=== PATIENT | female | born 1950 | race Caucasian/White ===

== ENCOUNTER 2022-09-18 14:42 | Outpatient (CLI) | payer OTHER, SELFPAY ==
[2022-09-18 19:21] LABS: Alanine Aminotransferase 30 U/L (6-35); Albumin Level 4.8 g/dL (3.5-5.1); Alkaline Phosphatase 95 U/L (38-126); Anion Gap 16 mmol/L (8-16); Aspartate Amino Transferase 46 U/L (14-36); Bilirubin,Total 0.8 mg/dL (0.2-1.3); Blood Urea Nitrogen 17 mg/dL (7-17); Carbon Dioxide 23 mmol/L (22-30); Chloride 99 mmol/L (98-107); Estimated Glomerular Filt Rate 40; Glucose 133 mg/dL (65-110); Potassium 4.5 mmol/L (3.4-5.0); Sodium 138 mmol/L (137-145)
[2022-09-18 19:23] LABS: Hemoglobin A1C 6.2 % (<5.7)
== END 2022-09-18 14:43 | disposition home or self-care (01) ==
LOC: ANHGOSHLAB 14:45
PROVIDERS: PCP Nurse Practitioner Family; Visit Provider Nurse Practitioner Family
DX: I12.9 Hypertensive chronic kidney disease with stage 1 through stage 4 chronic kidney disease, or unspecified chronic kidney disease (principal); N18.30 Chronic kidney disease, stage 3 unspecified; E11.9 Type 2 diabetes mellitus without complications
CPT/HCPCS: 36415; 80053; 83036

== ENCOUNTER 2023-05-05 15:04 | Outpatient (CLI) | payer OTHER, SELFPAY ==
[2023-05-05 16:11] LABS: Kit Draw Collected
== END 2023-05-05 15:05 | disposition home or self-care (01) ==
LOC: ANHGOSHLAB 15:06
PROVIDERS: PCP Nurse Practitioner Family; Visit Provider Nurse Practitioner Family
DX: R73.03 Prediabetes (principal); E78.5 Hyperlipidemia, unspecified; I10 Essential (primary) hypertension
CPT/HCPCS: 36415

== ENCOUNTER 2024-02-08 14:57 | Outpatient (CLI) | payer OTHER, SELFPAY ==
[2024-02-08 18:49] LABS: Basophils Absolute Auto 0.1 K/mm3 (0.0-0.1); Basophils Percent Auto 0.8 % (0.2-1.2); Eosinophils Absolute Auto 0.1 K/mm3 (0-0.3); Eosinophils Percent Auto 1.6 % (0-4.4); Hematocrit 46.3 % (37.0-47.0); Hemoglobin 14.9 g/dL (12.0-15.0); Immature Granulocyte Absolute 0.02 K/mm3 (0.00-0.031); Immature Granulocyte Percent A 0.2 % (0-0.5); Lymphocytes Absolute Auto 3.42 K/mm3 (0.9-3.2); Mean Corpuscular HGB Conc 32.2 g/dl (32-36); Mean Corpuscular Hemoglobin 31.4 pg (26-34); Mean Corpuscular Volume 97.5 fl (80-100); Mean Platelet Volume 9.6 fl (7.4-10.4); Monocytes Absolute Auto 0.6 K/mm3 (0.1-0.6); Monocytes Percent Auto 6.6 % (2.6-8.5); Neutrophils Absolute Auto 4.3 K/mm3 (1.3-6.7); Neutrophils Percent Auto 50.8 % (45.5-73.1); Platelet Count Result 396 k/mm3 (150-375); Red Blood Count 4.75 M/mm3 (4.2-5.4); Red Cell Distribution Width 13.7 % (11.5-14.5); White Blood Count 8.5 K/mm3 (4.5-10.0)
[2024-02-08 19:16] LABS: Alanine Aminotransferase 25 U/L (6-35); Albumin Level 4.6 g/dL (3.5-5.1); Alkaline Phosphatase 98 U/L (38-126); Anion Gap 9 mmol/L (4-12); Aspartate Amino Transferase 48 U/L (14-36); Bilirubin,Total 0.8 mg/dL (0.2-1.3); Blood Urea Nitrogen 27 mg/dL (7-17); Calcium 10.6 mg/dL (8.4-10.2); Carbon Dioxide 28 mmol/L (22-30); Chloride 101 mmol/L (98-107); Cholesterol 163 mg/dL (0-200); Estimated Glomerular Filt Rate 49; Glucose 126 mg/dL (65-110); HDL Direct 60 mg/dL; Potassium 3.5 mmol/L (3.4-5.0); Sodium 138 mmol/L (137-145); Triglycerides 255 mg/dL (<150)
[2024-02-08 19:29] LABS: LDL Cholesterol Direct 62 mg/dL
[2024-02-08 19:35] LABS: Creatinine Urine 177.8 mg/dL
[2024-02-08 19:39] LABS: MALB Creatinine Ratio 5.2 mg/g (0-30); Microalbumin Urine Random 9.2 mg/L (0-16.7)
[2024-02-13 13:33] LABS: Vitamin D 1,25 (OH)2 Total 13 pg/mL (18-72); Vitamin D2 1,25 (OH)2 <8 pg/mL; Vitamin D3 1,25 (OH)2 13 pg/mL
== END 2024-02-08 14:58 | disposition home or self-care (01) ==
LOC: ANHGOSHLAB 14:58
PROVIDERS: PCP Nurse Practitioner Family; Visit Provider Nurse Practitioner Family
DX: E55.9 Vitamin D deficiency, unspecified (principal); I10 Essential (primary) hypertension; E11.9 Type 2 diabetes mellitus without complications
CPT/HCPCS: 36415; 80053; 80061; 82043; 82652; 83036; 85025

== ENCOUNTER 2024-08-09 15:10 | Outpatient (CLI) | payer OTHER, SELFPAY ==
[2024-08-09 16:39] LABS: Basophils Absolute Auto 0.1 K/mm3 (0.0-0.1); Basophils Percent Auto 0.7 % (0.2-1.2); Eosinophils Absolute Auto 0.2 K/mm3 (0-0.3); Eosinophils Percent Auto 1.8 % (0-4.4); Hemoglobin 15.5 g/dL (12.0-15.0); Immature Granulocyte Absolute 0.03 K/mm3 (0.00-0.031); Immature Granulocyte Percent A 0.3 % (0-0.5); Lymphocytes Absolute Auto 3.09 K/mm3 (0.9-3.2); Lymphocytes Percent Auto 33.5 % (18.3-44.2); Mean Corpuscular Hemoglobin 31.9 pg (26-34); Mean Corpuscular Volume 96.7 fl (80-100); Monocytes Absolute Auto 0.8 K/mm3 (0.1-0.6); Monocytes Percent Auto 8.2 % (2.6-8.5); Neutrophils Absolute Auto 5.1 K/mm3 (1.3-6.7); Neutrophils Percent Auto 55.5 % (45.5-73.1); Platelet Count Result 401 k/mm3 (150-375); Red Blood Count 4.86 M/mm3 (4.2-5.4); Red Cell Distribution Width 13.8 % (11.5-14.5); White Blood Count 9.2 K/mm3 (4.5-10.0)
[2024-08-09 17:09] LABS: Free T4 Free Thyroxine 1.35 ng/mL (0.78-2.19); Vitamin D 25 Hydroxy 55.4 ng/mL
[2024-08-09 17:11] LABS: Alanine Aminotransferase 26 U/L (6-35); Albumin Level 4.5 g/dL (3.5-5.1); Alkaline Phosphatase 110 U/L (38-126); Anion Gap 11 mmol/L (4-12); Aspartate Amino Transferase 48 U/L (14-36); Bilirubin,Total 0.8 mg/dL (0.2-1.3); Blood Urea Nitrogen 17 mg/dL (7-17); Calcium 10.3 mg/dL (8.4-10.2); Carbon Dioxide 30 mmol/L (22-30); Chloride 98 mmol/L (98-107); Cholesterol 162 mg/dL (0-200); Estimated Glomerular Filt Rate 49; Glucose 116 mg/dL (65-110); HDL Direct 65 mg/dL; Potassium 3.4 mmol/L (3.4-5.0); Sodium 139 mmol/L (137-145); Triglycerides 232 mg/dL (<150)
[2024-08-09 17:21] LABS: LDL Cholesterol Direct 50 mg/dL
[2024-08-09 20:01] LABS: Hemoglobin A1C 6.5 % (<5.7)
== END 2024-08-09 15:11 | disposition home or self-care (01) ==
LOC: ANHGOSHLAB 15:12
PROVIDERS: PCP Nurse Practitioner Family; Visit Provider Nurse Practitioner Family
DX: Z00.00 Encounter for general adult medical examination without abnormal findings (principal); E55.9 Vitamin D deficiency, unspecified; I10 Essential (primary) hypertension; E11.9 Type 2 diabetes mellitus without complications; E78.5 Hyperlipidemia, unspecified
CPT/HCPCS: 36415; 80053; 80061; 82306; 83036; 84439; 84443; 85025

== ENCOUNTER 2025-02-07 14:16 | Outpatient (CLI) | payer OTHER, SELFPAY ==
--- OUTSIDE RECORDS SUMMARY | 2025-02-07 16:18 | XMS_ITS | Continuity of Care Document ---
Author Organization [facility] [place] Address [address] [place] [address] Phone Care Team Providers Care Prior Authorization Technician Name Role Phone [facility] Unavailable Unavail able Geri Nielsen Unavailable Unavailable Procedures Procedure Date Vision Svcs Frames Purchases Anti-reflective Coating Progressive Lens, Plastic UV Coat Eye Exam & Treatment Advance Directives Directive Yes / No Effective Date File Name No Information Encounters Encounter Description Practice Location Reason(s) For Visit Diagnoses Date Provider Providers Copied on Encounter [facility], [address] [place] [address] [facility] [address], [place], [place], [id number], [place] tel:[phone] [facility] No Information 5[address] [facility] . [address] [facility], [address], [id number], [place]. tel:[phone] Referring Provider: Destiney Stevenson, [address], [place], [address]. tel:[phone] g Provider: Geri Nielsen, [address] [facility] [address], [place], [address]. tel:[phone] [facility], [id number] [place] [address] [address], [place], [place], [id number], [place] tel:[phone] [facility] No Information [phone] Liza Cabello. [address] , [address], [place], [address], [place]. tel:[phone] Family History Family Member Type Diagnosis Age At Onset No Information Payers Payer name Insurance type Covered alliance party ID Malia giron(s) [employer] Plan [id number] Social History Type Description Quantity Date Captured Comments Sex Female Smoking Status No Information Chief Complaint And Reason For Visit No Information Reason For Referral Reason For Referral No Information History Of Present Illness Encounter Date Complaint History Of Prese nt Illness No Information Functional Status Date Functional Assessmen t No Information Instructions Date Instruction Additional Infor mation No Information Assessments Type Assessment Date No Information Patient Care Teams Name Effective Dates (start - stop) Status Members No Information
[2025-02-07 20:02] LABS: Basophils Absolute Auto 0.1 K/mm3 (0.0-0.1); Basophils Percent Auto 0.8 % (0.2-1.2); Eosinophils Absolute Auto 0.2 K/mm3 (0-0.3); Eosinophils Percent Auto 1.9 % (0-4.4); Hematocrit 45.6 % (37.0-47.0); Hemoglobin 14.8 g/dL (12.0-15.0); Immature Granulocyte Absolute 0.02 K/mm3 (0.00-0.031); Immature Granulocyte Percent A 0.2 % (0-0.5); Lymphocytes Absolute Auto 3.08 K/mm3 (0.9-3.2); Mean Corpuscular HGB Conc 32.5 g/dl (32-36); Mean Corpuscular Hemoglobin 31.7 pg (26-34); Mean Corpuscular Volume 97.6 fl (80-100); Monocytes Absolute Auto 0.8 K/mm3 (0.1-0.6); Neutrophils Absolute Auto 4.3 K/mm3 (1.3-6.7); Neutrophils Percent Auto 51.1 % (45.5-73.1); Platelet Count Result 364 k/mm3 (150-375); Red Blood Count 4.67 M/mm3 (4.2-5.4); Red Cell Distribution Width 14.4 % (11.5-14.5); White Blood Count 8.3 K/mm3 (4.5-10.0)
[2025-02-07 20:57] LABS: Creatinine Urine 57.4 mg/dL
[2025-02-07 21:21] LABS: Vitamin D 25 Hydroxy 51.6 ng/mL
[2025-02-07 21:26] LABS: Alanine Aminotransferase 27 U/L (6-35); Albumin Level 4.2 g/dL (3.5-5.1); Alkaline Phosphatase 110 U/L (38-126); Anion Gap 10 mmol/L (4-12); Aspartate Amino Transferase 42 U/L (14-36); Bilirubin,Total 0.8 mg/dL (0.2-1.3); Blood Urea Nitrogen 19 mg/dL (7-17); Calcium 9.4 mg/dL (8.4-10.2); Carbon Dioxide 29 mmol/L (22-30); Chloride 98 mmol/L (98-107); Cholesterol 165 mg/dL (0-200); Estimated Glomerular Filt Rate 50; Glucose 114 mg/dL (65-110); HDL Direct 58 mg/dL; Potassium 3.3 mmol/L (3.4-5.0); Sodium 137 mmol/L (137-145); Triglycerides 252 mg/dL (<150)
[2025-02-07 21:27] LABS: MALB Creatinine Ratio < 10.5 mg/g (0-30); Microalbumin Urine Random < 6.0 mg/L (0-16.7)
[2025-02-07 21:43] LABS: LDL Cholesterol Direct 51 mg/dL
[2025-02-07 21:55] LABS: Hemoglobin A1C 6.3 % (<5.7)
== END 2025-02-07 14:17 | disposition home or self-care (01) ==
LOC: ANHGOSHLAB 14:16
PROVIDERS: PCP Family Medicine; Visit Provider Nurse Practitioner Family
DX: E11.22 Type 2 diabetes mellitus with diabetic chronic kidney disease (principal); E78.5 Hyperlipidemia, unspecified; E55.9 Vitamin D deficiency, unspecified; I12.9 Hypertensive chronic kidney disease with stage 1 through stage 4 chronic kidney disease, or unspecified chronic kidney disease; N18.31 Chronic kidney disease, stage 3a
CPT/HCPCS: 36415; 80053; 80061; 82043; 82306; 83036; 85025

== ENCOUNTER 2025-08-21 13:52 | Outpatient (CLI) | payer OTHER, SELFPAY ==
[2025-08-21 19:22] LABS: Hematocrit 50.8 % (37.0-47.0); Hemoglobin 16.3 g/dL (12.0-15.0); Immature Granulocyte Percent A 0.2 % (0-0.5); Lymphocytes Absolute Auto 2.92 K/mm3 (0.9-3.2); Mean Corpuscular HGB Conc 32.1 g/dl (32-36); Mean Corpuscular Hemoglobin 31.6 pg (26-34); Mean Corpuscular Volume 98.4 fl (80-100); Nucleated Red Blood Cells Absolute Auto 0.000 K/mm3 (0.0-0.012); Nucleated Red Blood Cells Perc 0.0 % (0.0-0.2); Platelet Count Result 387 k/mm3 (150-375); Red Blood Count 5.16 M/mm3 (4.2-5.4); White Blood Count 9.6 K/mm3 (4.5-10.0)
[2025-08-21 19:36] LABS: Alanine Aminotransferase 32 U/L (6-35); Albumin Level 4.4 g/dL (3.5-5.1); Alkaline Phosphatase 104 U/L (38-126); Anion Gap 10 mmol/L (4-12); Aspartate Amino Transferase 51 U/L (14-36); Bilirubin,Total 0.8 mg/dL (0.2-1.3); Blood Urea Nitrogen 17 mg/dL (7-17); Calcium 9.6 mg/dL (8.4-10.2); Carbon Dioxide 27 mmol/L (22-30); Chloride 100 mmol/L (98-107); Cholesterol 149 mg/dL (0-200); Estimated Glomerular Filt Rate 48; Glucose 108 mg/dL (65-110); HDL Direct 55 mg/dL; Potassium 3.6 mmol/L (3.4-5.0); Sodium 137 mmol/L (137-145); Total Protein 7.9 g/dL (6.3-8.2); Triglycerides 249 mg/dL (<150)
[2025-08-21 20:14] LABS: Thyroid Stimulating Hormone Reflex 3.820 uIU/mL (0.465-4.68)
[2025-08-21 20:53] LABS: Hemoglobin A1C 6.1 % (<5.7)
== END 2025-08-21 13:53 | disposition home or self-care (01) ==
LOC: ANHGOSHLAB 13:53
PROVIDERS: PCP Nurse Practitioner Family; Visit Provider Nurse Practitioner Family
DX: E78.5 Hyperlipidemia, unspecified (principal); I10 Essential (primary) hypertension; E11.9 Type 2 diabetes mellitus without complications
CPT/HCPCS: 36415; 80053; 80061; 83036; 84443; 85025